=== PATIENT | male | born 1935 | race Caucasian/White ===

== ENCOUNTER → 2017-10-08 | Outpatient (CLI) | payer MEDICARE, OTHER ==
[~2017-10-08] MED LIST: ACETAMINOPHEN-1 EAC1 PO; ADULT LOW DOSE81 MG PO; APAP W/CODEINE1 TA3 PO; ASPIRIN EC81 M1 PO; ASPIRIN325 PO; CARDIZEM CD120 MG PO; CARDIZEM CD240 MG PO; CELEBREX 200 M200 MG PO; CITRUCEL POWD1418 GM; COLACE100 MG PO; COUMADIN 5 MG TA5 M1; COUMADIN 5 MG TA5 M1 PO; DOXYCYCLINE 10100 MG PO; FLEXERIL PO; FOLIC ACID1 MG PO; HYDROCODON-ACE1 EAC7 PO; HYDROCODONE-AP1 EAC6 PO; LANOXIN 0.120.125 M1 PO; LASIX 40 MG TAB40 M2 PO; LOVENOX; LOVENOX SQ; LYRICA 75 MG CA75 MG PO; METAMUCIL283 GM PO; MOM PO; NEXIUM40 MG PO; NITROGLYCERIN0.4 MG SUBLING; OXYIR5 MG PO; PACERONE 200 M200 M1; PACERONE 200 M200 M1 PO; PERCOCET 5-3251 EACH PO; PERCOCET PO; PREDNISONE 5 MG5 M1 PO; PROAIR HFA8.5 GM INH; PROMETHAZINE V473 ML PO; RYTHMOL225 MG PO; TESSALON PERLE100 MG PO; VITAMIN E400 UNIT PO; ZOFRAN ODT4 MG PO
--- NOTE | 2017-10-10 09:33 | PAINCON ---
[facility] [address] [place] [address] PAIN MANAGEMENT CONSULTATION Name: RIK GONSALES Room: [facility] Bill#: [id number] Admission: 10/08/17 Attend Phys: Baldomero Bailey Discharge: Date of : 37 Report #: [id number] THIS REPORT FOR: //name// CC: Corby Woods The patient is an 82-year-old gentleman, prior seen for symptomatic lumbar radiculopathy and symptomatic spinal stenosis. He had 2 epidural injections done in June with excellent improvement of pain, though pain has begun to recur. Pain started this past August with exacerbation of pain in the back, buttock, and leg pain has continued over the past several months, returns to pain clinic today noting pain to a 5 on a VAS. Blood pressure 122/77, pulse 76, respiratory rate 18. Rises from chair using armrest. Diffuse tenderness across the low back, left hip and leg, modestly antalgic gait, positive straight leg raise on the left. We reviewed diagnostic findings noting MRI from 06/17/2017, notes L5-S1 to have amhndzjm-bb-odmbhw disk desiccation with bilateral neural foraminal narrowing, severe left neural foraminal stenosis. ASSESSMENT: Symptomatic lumbar radiculopathy, acute exacerbation of lumbar radicular symptoms. RECOMMENDATION: 1. Repeat epidural injection under fluoroscopy today, midline approach at L5-S1. 2. Continue current medication including Lyrica and hydrocodone from his primary care physician. Follow up as needed, we will not be able to repeat another injection until December. PROCEDURE: Lumbar epidural injection under fluoroscopy. PROCEDURE NOTE: After both written and informed consent to include risk of spinal cord damage, increased pain, weakness and dural puncture, the patient was taken to the fluoroscopy suite, placed in the prone position. After sterile prep and drape, a skin wheal with lidocaine was raised. A 22-gauge epidural Tuohy needle was inserted in the midline at L5-S1 with good loss to resistance. Negative aspiration for cerebrospinal fluid or blood was noted. Then 1 mL of Omnipaque under biplanar fluoroscopy showed good spread within the epidural space. This was followed with 80 mg of triamcinolone plus 1 mL of 1.5% preservative-free Xylocaine, 0.5 mL Xylocaine was [place] [address] PAIN MANAGEMENT CONSULTATION Name: RADAMESEMILYRIK [id number] Admission: 10/08/17 Attend Phys: Baldomero Bailey Discharge: Date of : 37 Report #: [id number] needle; it was removed. The patient was monitored for an appropriate period of time and discharged in good and stable condition. <ELECTRONICALLY SIGNED> By: Landry Woods DO 10/10/17 0933 1322 [id number] Woods DO /roque
== END | disposition home or self-care (01) ==
LOC: M.PC 08-20 10:00
DX: M54.16 Radiculopathy, lumbar region (principal)

== ENCOUNTER 2017-11-24 12:12 | Emergency (ER) | payer MEDICARE, OTHER ==
[~2017-11-24] VITALS: Ht 175.3 cm; Wt 99.8 kg
[~2017-11-24 12:12] MED LIST changes: -ACETAMINOPHEN-1 EAC1 PO; -DOXYCYCLINE 10100 MG PO; -PREDNISONE 5 MG5 M1 PO; -PROAIR HFA8.5 GM INH; -PROMETHAZINE V473 ML PO; -TESSALON PERLE100 MG PO
[2017-11-24] MEDS ORDERED: LASIX 40 MG TAB40 M2 PO (12:36)
[2017-11-24] MEDS ORDERED: PREDNISONE 5 MG5 M1 PO (12:37)
[2017-11-24 13:26] LABS: ABSOLUTE BASOPHILS 0.1 thou/uL (0.0-0.2); ABSOLUTE LYMPHOCYTES 1.2 thou/uL (0.8-5.3); ABSOLUTE MONOCYTES 1.2 thou/uL (0.0-1.2); ABSOLUTE NEUTROPHILS 7.7 thou/uL (1.6-8.1); BASOPHILS 1.1 %; EOSINOPHILS 0.3 %; HEMATOCRIT 46.3 % (42.0-52.0); HEMOGLOBIN 15.6 gm/dL (14.0-18.0); MCH 31.3 pg (26.0-34.0); MCHC 33.7 g/dL (28.0-37.0); MCV 92.8 fL (80.0-100.0); MONOCYTES 11.3 %; MPV 9.6 fl. (7.2-11.1); NUCLEATED RBCS 0 /100WBC; PLATELET COUNT* 142 thou/uL (150-400); POLYS 75.3 %; RBC 4.98 mil/uL (4.50-6.00); RDW-CV 13.5 % (10.5-14.5); WBC 10.2 thou/uL (4.0-11.0)
[2017-11-24 13:40] LABS: ANION GAP 5 mmol/L (7-16); BUN 18 mg/dL (7-18); CALCIUM 8.7 mg/dL (8.5-10.1); CHLORIDE 103 mmol/L (98-107); CO2 31 mmol/L (21-32); GLUCOSE 104 mg/dL (70-99); POTASSIUM 3.7 mmol/L (3.5-5.1); SODIUM 139 mmol/L (136-145)
[2017-11-24 13:48] LABS: ALBUMIN 3.4 g/dL (3.4-5.0); ALKALINE PHOSPHATASE 61 U/L (46-116); SGOT 27 U/L (15-37); SGPT 43 U/L (30-65); TOTAL BILIRUBIN 0.5 mg/dL (<0.1-1.0); TOTAL PROTEIN 7.5 g/dL (6.4-8.2); TROPONIN-I LEVEL <0.06 ng/mL (<0.06)
[2017-11-24] MEDS ORDERED: ACETAMINOPHEN-1 EAC1 PO (14:15)
[2017-11-24] MEDS ORDERED: TESSALON PERLE100 MG PO (14:15)
[2017-11-24] MEDS ORDERED: DOXYCYCLINE 10100 MG PO (14:15)
[2017-11-24] MEDS ORDERED: PROMETHAZINE V473 ML PO (14:15)
[2017-11-24] MEDS ORDERED: PROAIR HFA8.5 GM INH (14:15)
[2017-11-24 14:42] VITALS: BP 146/79
--- NOTE | 2017-11-24 15:01 | EKG ---
[place] [address] ELECTROCARDIOGRAM REPORT Name: TORIBIODAMIENCAROLIN DIAZT Ariane [facility] [id number] Admission: 11/24/17 Attend Phys: Discharge: 11/24/17 Date of : 37 Report #: [id number] THIS REPORT FOR: //name// [facility] ED Test Date: 2017-11-24 Test Time: 13:17:40 Pat Name: RIK GONSALES Department: Room: Gender: M Porter Head: : 1935 Requested By: Valentina Gastelum Order Number: [id number] MD: Riley De Leon Measurements Intervals [place] Rate: 94 P: [place]: QRS: -14 QRSD: 90 T: 19 QT: 315 QTc: 394 Interpretive Statements Atrial fibrillation Compared to ECG 12/05/2015 17:14:29 no change Electronically Signed On 11-24-2017 15:01:10 BIG MACHINE CONSULTANT by Riley De Leon [email or web address] <ELECTRONICALLY SIGNED> By: Riley De Leon MD, [facility] 11/24/17 1501 1317 16 Riley De Leon MD, FACC /EPI
== END 2017-11-24 14:42 | disposition home or self-care (01) ==
LOC: M.ERS 12:12
PROVIDERS: Physician Assistant
DX: J11.1 Influenza due to unidentified influenza virus with other respiratory manifestations (principal); J20.9 Acute bronchitis, unspecified; I48.91 Unspecified atrial fibrillation; Z96.652 Presence of left artificial knee joint; Z96.641 Presence of right artificial hip joint; Z90.49 Acquired absence of other specified parts of digestive tract; Z91.041 Radiographic dye allergy status; Z91.013 Allergy to seafood

== ENCOUNTER → 2017-12-31 | Outpatient (CLI) | payer MEDICARE, OTHER ==
[~2017-12-31] MED LIST changes: +ACETAMINOPHEN-1 EAC1 PO; +DOXYCYCLINE 10100 MG PO; +PREDNISONE 5 MG5 M1 PO; +PROAIR HFA8.5 GM INH; +PROMETHAZINE V473 ML PO; +TESSALON PERLE100 MG PO
--- NOTE | 2018-01-01 06:52 | PAINCON ---
[facility] [address] [place] [address] PAIN MANAGEMENT CONSULTATION Name: DRURIK L [facility] [id number] Admission: 12/31/17 Attend Phys: Baldomero Bailey Discharge: Date of : 37 Report #: [id number] THIS REPORT FOR: //name// CC: Corby Woods HISTORY OF PRESENT ILLNESS: The patient is a pleasant 82-year-old gentleman, prior treated for symptomatic lumbar radiculopathy, who had a series of three epidural injections; two June and one in September. Notes radicular symptoms appear to be fairly nominal, though he does have axial back pain, primarily left side. Pain is exacerbated with standing and rotating. It appears to be at the level of the iliac crest, possibly a little lower. Empirically, it appears that the pain is over the left L3-L4 and L4-L5 facets, may be a component of L5-S1. Lower extremity strength is preserved. Gait is tandem. Flexion and extension do not exacerbate pain. No SI joint tenderness noted. Straight leg raise negative. He rates the subjective pain a 4 on the VAS and 10 with activity. PHYSICAL EXAMINATION: Otherwise shows a 6-zhtj-4-inch, 234-pound gentleman, BMI is 34.7 kilograms per meter squared. Blood pressure 121/67, pulse 81 and respirations are 18. Alert and oriented to person, place and time, judged to be a reasonable historian. ASSESSMENT: Lumbar spondylosis without myelopathy, L3-L4 and L4-L5 distribution. History of lumbar radiculopathy, relatively quiescent. RECOMMENDATIONS: Fluoroscopic-guided facet joint injections on the left L3-L4 and L4-L5 today. Follow up 2 weeks for reevaluation. If symptoms are not significantly ameliorated, may consider L5-S1 (repeat L4-L5?) facet injections. PROCEDURE: Left L3-L4 and L4-L5 facet joint injection under fluoroscopy. DESCRIPTION OF PROCEDURE: After written and informed consent was obtained, the patient was taken to the fluoroscopy suite and placed in prone position. After sterile prep and drape, skin was raised. A 22-gauge stylet needle was placed to contact the inferior aspect of the left L3-L4 and left L4-L5 facet joint. AP and lateral projections showed good needle placement. A 20 mg triamcinolone plus 1 mL of 0.25% preservative-free bupivacaine was injected at each site. Both needles were removed. The area was cleansed, Band-Aid was applied. The patient monitored for an appropriate period of time, [place] [address] PAIN MANAGEMENT CONSULTATION Name: RIK GONSALES [facility] [id number] Admission: 12/31/17 Attend Phys: Baldomero Bailey Discharge: Date of : 37 Report #: [id number] stable condition. Asked to monitor pain score for the next several hours. Follow up in 2 weeks for reevaluation. <ELECTRONICALLY SIGNED> By: Landry Woods DO 01/01/18 0652 1304 1339Landry Woods DO /nt
== END | disposition home or self-care (01) ==
LOC: M.PC 02:44
DX: M47.816 Spondylosis without myelopathy or radiculopathy, lumbar region (principal); G89.29 Other chronic pain; Z91.041 Radiographic dye allergy status; Z79.82 Long term (current) use of aspirin; Z79.891 Long term (current) use of opiate analgesic; Z79.899 Other long term (current) drug therapy; Z98.890 Other specified postprocedural states

== ENCOUNTER → 2018-01-14 | Outpatient (CLI) | payer MEDICARE, OTHER ==
--- NOTE | 2018-01-15 09:37 | PAINCON ---
[facility] [address] [place] [address] PAIN MANAGEMENT CONSULTATION Name: DRURIK L [facility] [id number] Admission: 01/14/18 Attend Phys: Baldomero Bailey Discharge: Date of : 37 Report #: [id number] THIS REPORT FOR: //name// CC: Corby Woods DATE OF SERVICE: 01/14/2018 The patient is a very pleasant 82-year-old gentleman, prior seen for ongoing axial back and radicular pain. Initially seen in the fall. We did 3 epidural injections, 06/25/2017, 07/16/2017, and 10/08/2017. He has afforded really nominal relief. Ultimately, he was seen back in followup 12/31/2017. Pain was primarily axial back. At last visit, I have done left-sided L3-L4 and L4-L5 facet joint injections under fluoroscopy. He returns to Pain Clinic today again noting really only nominal relief at this intervention. The patient is complaining of pain primarily low back, left greater than right side. The patient is complaining primarily of left-sided low back pain, rates it a 9 on a VAS. Notes pain radiates to the top of the left hip, but not down the leg. Pain does interfere with activity. PHYSICAL EXAMINATION: Otherwise, unchanged. An 82-year-old gentleman, BMI is 34.1 kg/m2. Blood pressure 118/70, pulse 83, respirations 16. Rises from chair with difficulty using armrest. Gait is modestly antalgic, but the lower extremity strength is symmetric. Straight leg raise negative. Tender over the low lumbar facets. Pain is exacerbated with rotation and sidebending. Again, however, really no relief with technically successful left L3-L4 and L4-L5 facet joint injections with local anesthetic and steroid. We reviewed the diagnostic finding including MRI from 06/17/2017 noting L3-L4 to have mild bilateral facet arthrosis and a small broad-based disk bulge with bilateral foraminal disk bulging, a superimposed shallow right disk approaching the L4 nerve root. Again, this does not correlate with significant right L4 radicular pain. L5-S1 notes bilateral foraminal disk bulging with moderate facet hypertrophy resulting in moderate to severe right and severe left neural foraminal narrowing. Again, no dramatic L5 radicular symptoms, though his axial back pain may be an aberrant neurogenic claudication equivalent. RECOMMENDATION: At this point, I am loathe to pursue any further interventional therapy with such minimal efficacy with prior interventions. We will suggest the patient follow up with back surgeon to see if there are any definitive therapeutic interventions that are warranted. If not, unfortunately I think we were somewhat [place] [address] PAIN MANAGEMENT CONSULTATION Name: RADAMESJOSE MANUEL DIAZRIK L Room: [facility] TAINA Khan#: [id number] Admission: 01/14/18 Attend Phys: Baldomero Bailey Discharge: Date of : 37 Report #: [id number] Thanks for allowing me to participate in the patient's care. He is given contact information for Dr. Riley Flor in [facility]. <ELECTRONICALLY SIGNED> By: Landry Woods DO 01/15/18 0937 1521 [id number] Woods DO /nt
== END ==
LOC: M.PC 04:37
DX: M54.16 Radiculopathy, lumbar region (principal)

== ENCOUNTER → 2018-02-02 | Outpatient (CLI) | payer MEDICARE, OTHER | LOC: M.MRI 06:43 | DX: M47.816 Spondylosis without myelopathy or radiculopathy, lumbar region (principal); M48.061 Spinal stenosis, lumbar region without neurogenic claudication; M25.552 Pain in left hip ==

== ENCOUNTER → 2018-05-21 | Outpatient (CLI) | payer MEDICARE, OTHER | LOC: M.RAD 09:59 | DX: M19.031 Primary osteoarthritis, right wrist (principal); M19.011 Primary osteoarthritis, right shoulder; M19.041 Primary osteoarthritis, right hand; M19.021 Primary osteoarthritis, right elbow; M25.741 Osteophyte, right hand; M25.721 Osteophyte, right elbow; M25.711 Osteophyte, right shoulder; M79.89 Other specified soft tissue disorders; I48.91 Unspecified atrial fibrillation; W19.XXXA Unspecified fall, initial encounter ==

== ENCOUNTER → 2019-03-19 | Outpatient (CLI) | payer MEDICARE, OTHER | LOC: M.CT 09:28 | DX: M50.823 Other cervical disc disorders at C6-C7 level (principal); I67.82 Cerebral ischemia ==

== ENCOUNTER 2019-05-22 03:16 | Inpatient (IN) | payer MEDICARE, OTHER ==
[2019-05-22] VITALS (7 sets, daily range): BP systolic 98–152; BP diastolic 58–85
[~2019-05-22] VITALS: Ht 175.3 cm; Wt 100.2 kg
[~2019-05-22 03:16] MED LIST changes: +DIGOXIN125 MCG PO; -LANOXIN 0.120.125 M1 PO
[2019-05-22 04:08] LABS: ABSOLUTE BASOPHILS 0.1 thou/uL (0.0-0.2); ABSOLUTE EOSINOPHILS 0.1 thou/uL (0.0-0.7); ABSOLUTE LYMPHOCYTES 2.3 thou/uL (0.8-5.3); ABSOLUTE MONOCYTES 0.8 thou/uL (0.0-1.2); ABSOLUTE NEUTROPHILS 4.4 thou/uL (1.6-8.1); BASOPHILS 0.7 %; EOSINOPHILS 1.4 %; HEMATOCRIT 44.6 % (42.0-52.0); HEMOGLOBIN 14.7 gm/dL (14.0-18.0); LYMPHOCYTES 30.5 %; MCH 30.5 pg (26.0-34.0); MCV 92.5 fL (80.0-100.0); NUCLEATED RBCS 0 /100WBC; PLATELET COUNT* 149 thou/uL (150-400); POLYS 57.4 %; RBC 4.83 mil/uL (4.50-6.00); RDW-CV 13.7 % (10.5-14.5); WBC 7.7 thou/uL (4.0-11.0)
[2019-05-22 04:18] LABS: ANION GAP 6 mmol/L (7-16); BUN 19 mg/dL (7-18); CHLORIDE 106 mmol/L (98-107); CO2 28 mmol/L (21-32); CREATININE 1.1 mg/dL (0.6-1.3); GLUCOSE 140 mg/dL (70-99); POTASSIUM 3.8 mmol/L (3.5-5.1); PROTIME 10.2 Seconds (9.20-11.50); SODIUM 140 mmol/L (136-145)
[2019-05-22 04:21] LABS: ALBUMIN 3.4 g/dL (3.4-5.0); ALKALINE PHOSPHATASE 62 U/L (46-116); LIPASE 93 U/L (73-393); NT-PRO BRAIN NAT PEPTIDE 784 pg/mL (<300); SGOT 16 U/L (15-37); SGPT 26 U/L (30-65); TOTAL BILIRUBIN 0.5 mg/dL (<0.1-1.0); TOTAL PROTEIN 6.5 g/dL (6.4-8.2); TROPONIN-I LEVEL <0.06 ng/mL (<0.06)
[2019-05-22] MEDS ORDERED: ASPIR 8181 MG PO (06:01)
--- NOTE | 2019-05-22 07:32 | NUR ---
RECEIVED REPORT FROM ED RN. PT TRANSFERRED TO ROOM 227. PT A&OX4. VSS. 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 ADMISSION HISTORY & PHYSICAL ASSESMENT COMPLETED AND CHARTED. ORIENTED TO ROOM & CALL LIGHT. PT ON O2 AT 2L NC. PT TRACING AFIB ON TELE. PT UPADLIB TO RESTROOM. PT COMPLAINED OF LEFT UPPER QUADRANT ABDOMINAL PAIN. INSTRUCTED ON NPO ORDERED. CALL LIGHT WITHIN REACH.
--- NOTE | 2019-05-22 12:29 | NUR ---
ASSUMED PT CARE AT 0800, AOX4, UP SBA, O2 SAT 90'S RA. TRACING YOLANDE AFIB ON TELE. PT COMPLAINS OF ABDOMINAL AND BACK PAIN. PT FOR CT ABDOMEN/PELVIS. PT ON CLEAR LIQUID DIET. LAST BM 05/21/19. VSS, AM ASSESSMENT CHARTED. MEDS GIVEN PER MAR, HOURLY ROUNDING, CALL LIGHT WITHIN REACH, WILL CONTINUE TO MONITOR.
--- NOTE | 2019-05-22 13:08 | EKG ---
[place] [address] ELECTROCARDIOGRAM REPORT Name: RIK GONSALES Room: [place] [address] ADM IN .R.#: [id number] Admission: 05/22/19 Attend Phys: Aliza hCapa MD Discharge: Date of : 37 Report #: [id number] THIS REPORT FOR: //name// [facility] ED Test Date: 2019-05-22 Test Time: 03:23:37 Pat Name: RIK GONSALES Department: Room: [facility] Gender: M Form Maker Plaster: ID : [id number] Requested By: Valentina Newman Order Number: [id number] MD: Riley De Leon Measurements Intervals [place] Rate: 68 P: [place]: QRS: -18 QRSD: 96 T: 0 QT: 390 QTc: 415 Interpretive Statements Atrial fibrillation Inferior infarct, old Baseline wander in lead(s) V3 Compared to ECG 11/24/2017 13:17:40 no change Electronically Signed On 05-22-2019 13:07:55 CDT by Riley De Leon [email or web address] <ELECTRONICALLY SIGNED> By: Riley De Leon MD, [facility] 05/22/19 1307 0323 0323 Riley De Leon MD, [facility] /EPI
[2019-05-23 03:30] VITALS: BP 111/59
[2019-05-23 04:20] LABS: HEMATOCRIT 43.1 % (42.0-52.0); HEMOGLOBIN 14.3 gm/dL (14.0-18.0); MCH 30.7 pg (26.0-34.0); MCHC 33.3 g/dL (28.0-37.0); MCV 92.2 fL (80.0-100.0); MPV 9.3 fl. (7.2-11.1); RBC 4.67 mil/uL (4.50-6.00); RDW-CV 13.9 % (10.5-14.5); WBC 6.6 thou/uL (4.0-11.0)
[2019-05-23 04:42] LABS: ALKALINE PHOSPHATASE 43 U/L (46-116); ANION GAP 5 mmol/L (7-16); BUN 14 mg/dL (7-18); CALCIUM 8.1 mg/dL (8.5-10.1); CHLORIDE 107 mmol/L (98-107); CO2 30 mmol/L (21-32); GLUCOSE 125 mg/dL (70-99); POTASSIUM 4.5 mmol/L (3.5-5.1); SGOT 17 U/L (15-37); SGPT 23 U/L (30-65); SODIUM 142 mmol/L (136-145); TOTAL BILIRUBIN 1.1 mg/dL (<0.1-1.0); TOTAL PROTEIN 6.2 g/dL (6.4-8.2); TROPONIN-I LEVEL <0.06 ng/mL (<0.06)
--- NOTE | 2019-05-23 07:55 | NUR ---
ASSUMED CARE OF PT AFTER REPORT AT 1930. PT A&OX4. VSS. PHYSICAL ASSESSMENT COMPLETED AND CHARTED. PT ON RA. PT TRACING AFIB ON TELE. PT UPADLIB TO RESTROOM. PT DENIES ABDOMINAL PAIN OR PRESSURE. PT ABLE TO SLEEP WELL ON BED. CALL LIGHT WITHIN REACH.
[2019-05-23 08:00] VITALS: BP 126/63
[2019-05-23 11:27] VITALS: BP 131/80
[2019-05-23] MEDS ORDERED: SENNA8.6 MG PO (16:05)
[2019-05-23] MEDS ORDERED: SIMETHICON CHEW80 M1 PO (16:12)
[2019-05-23] MEDS ORDERED: LEVAQUIN 500 M500 M2 PO (16:17)
[2019-05-23] MEDS ORDERED: MIRALAX17 GM PO (16:20)
[2019-05-23 16:30] VITALS: BP 131/80
--- NOTE | 2019-05-23 17:30 | NUR ---
PT ATE ALL MEALS THIS SHIFT WITH C/O OF DISCOMFORT. HE HAD TO LARGE BELCHES AND STATED HE FELT MUCH BETTER. ABDOMEN WAS SOFT AND NO C/O OF DISTENTION OR DISCOMFORT. 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 LEFT IN W/C ACCOMPANIED BY AND NURSE.
--- NOTE | 2019-05-23 17:41 | NUR ---
ASSUMED PT CARE AT 0730, PT WAS NOTED TO BE RESTING BED A/OX4. HIS AT HIS BEDSIDE. ASSESSMENT COMPLETED AND DOCUMENTED, VSS, PT STATED HE HAD 2 SMALL BM'S. NO C/O PAIN, WILL CONT HOURLY ROUNDS THIS SHIFT. CALL LIGHT IN REACH.
--- NOTE | 2019-05-24 10:40 | CON ---
[address] [address] CONSULTATION Name: RIK GONSALES Room: [address] IN M.Vanessa.#: [id number] Admission: 05/22/19 Attend Phys: Aliza Chapa MD Discharge: 05/23/19 Date of : 37 Report #: [id number] THIS REPORT FOR: //name// CC: Aliza Lau DO DATE OF SERVICE: 05/22/2019 CARDIOLOGY CONSULTATION HISTORY OF PRESENT ILLNESS: The patient is an 83-year-old white male who I was asked to see in the hospital today after he complained of chest pain. The patient has an extensive past medical history. He has a long history of atrial fibrillation. He apparently was cardioverted twice approximately 10 years ago, but had recurrent atrial fibrillation and decided to aim for rate control rather than repeat cardioversion. The patient has refused anticoagulation in the past. He previously was followed by my partner, Dr. Barron. He apparently had heart catheterization years ago and was found to have no significant coronary artery disease. He actually had a stress test in 2016 here at [place] that showed ejection fraction 65%. No evidence of ischemia or previous infarction. His last echocardiogram in 2016 showed ejection fraction 65%, left ventricular hypertrophy, biatrial enlargement. The patient last saw Dr. Nettles in January. His heart catheterization was in 2010 here at [place] by Dr. Barron and showed no significant coronary artery disease with normal left ventricular function. The patient states he has chronic back pain and does stretching exercises on a daily basis. He notes for the past 3 days, he has noticed some abdominal distention and it was hard to breathe. He notes some heaviness in his chest. He finally came to the hospital last night, was admitted. He denied the pain radiating down his arms. He had no diaphoresis or nausea. He has had no vomiting or diarrhea. He does have a history of diverticular disease. He denies any significant exertional palpitations. He has had some lightheadedness and shortness of breath. He had no fever. PAST MEDICAL HISTORY: Significant for previous cholecystectomy, prostatectomy for prostate cancer. He has had hip surgery, knee surgery. He has no history of hypertension, diabetes, hyperlipidemia. MEDICATIONS: Include aspirin a day, digoxin, diltiazem, Lidoderm patch, Lyrica. ALLERGIES: HE HAS INTOLERANCE TO MECLIZINE. FAMILY HISTORY: He has a sister who suddenly. SOCIAL HISTORY: He is . He and his live in [place], [place]. He is retired from [employer]. He was a nonsmoker[place] [address] CONSULTATION Name: JOSE MANUEL GONSALESREST DELIA Room: [address] M.R.#: [id number] Admission: 05/22/19 Attend Phys: Aliza Chapa MD Discharge: 05/23/19 Date of : 37 Report #: [id number] REVIEW OF SYSTEMS: He has had no history of stroke, asthma, peptic ulcer disease, liver disease, kidney disease. He has had prostate cancer. No chronic skin condition. He has had a kidney stone in the past. PHYSICAL EXAMINATION: GENERAL: Revealed an elderly male, lying in bed, appeared in no acute distress. VITAL SIGNS: Blood pressure 140/70, pulse 60. He is afebrile. HEENT: He was anicteric. Conjunctivae pink. Mucous membranes moist. NECK: Veins do not appear distended. No carotid bruits. Neck supple. CHEST: Clear to auscultation. CARDIOVASCULAR: Irregular rhythm. ABDOMEN: Soft. EXTREMITIES: Had no edema. SKIN: Warm and dry. NEUROLOGIC: Nonfocal. RADIOLOGICAL DATA: His ECG showed atrial fibrillation. There was no ST or T-wave change. His workup in the Emergency Room last night, he had a portable chest x-ray that showed atelectasis, otherwise unremarkable. CT scan of the head that was done in February showed no acute abnormalities, some atrophy. LABORATORY DATA: His lab work last night, sodium 140, creatinine 1.1, glucose 140. His liver enzymes were normal. Troponin 0.06. BNP 784. Previous TSH was 3.5. White blood cell count 7.7, hemoglobin 14.7. IMPRESSION AND RECOMMENDATIONS: 1. Atrial fibrillation. Rate controlled with a digoxin and diltiazem. The patient refuses anticoagulation. 2. Abdominal distention. The patient is scheduled for a CT scan of the abdomen. The patient does have history of diverticular disease. 3. Chest pain. Atypical for angina. Previous normal catheterization and stress test. Recommend no further cardiac evaluation. 4. Restless leg syndrome. 5. Chronic back pain. 6. History of prostate cancer. <ELECTRONICALLY SIGNED> By: Riley De Leon MD, FACC 05/24/19 1040 0955 1314Dtai De Leon MD, FACC /nt
--- NOTE | 2019-05-29 16:06 | CON ---
[address] [address] CONSULTATION Name: RIK GONSALES Room: [address] IN M.R.#: [id number] Admission: 05/22/19 Attend Phys: Aliza Chapa MD Discharge: 05/23/19 Date of : 39 Report #: [id number] THIS REPORT FOR: //name// CC: Aliza Lua DO DATE OF SERVICE: 05/23/2019 REFERRING DOCTOR: Aliza Chapa MD. REASON FOR CONSULTATION: Abdominal bloating. IMPRESSION: 1. Diffuse abdominal pain associated with abdominal distention, early satiety and bowel changes. 2. Abdominal pain and bloating, which has since resolved. 3. Recent change in bowel habits with a tendency towards constipation. RECOMMENDATIONS: 1. The patient appears to be doing much better at this time. I told him that if he did well with dinner that we will proceed with an outpatient colonoscopy to ensure there is nothing going on with his lower GI tract to cause his bowel irregularity. We can arrange for this to be done within the next couple of weeks. He will need a 2-day prep due to his bowel changes. 2. In the interim, we can get him started on some MiraLax 17 grams in 8 ounces of water daily to help keep his bowels moving. 3. We will request records from Dr. Abdullahi Kearns, who did his last colonoscopy within last few years. 4. If he needs to take anything once he gets home because he is not passing lot of stool, I would suggest that he take a 10-ounce bottle of mag citrate followed by MiraLax daily. I have discussed the plans with the patient as well as his and they are agreeable to the same. HISTORY OF PRESENT ILLNESS: The patient is a pleasant 83-year-old white male who came to the emergency room with complaints of just severe abdominal distention and feeling as if he could not breathe. He has been having some issues with his bowels being less erratic, less regular and less stool frequency. Because he has also not been eating, this makes things worse for his bowels. He denies normally any issues with his bowels or bowel frequency, but recently over the last week or two, he has just gotten little bit less sluggish. He has not had much in regards to evacuation. He denies any bleeding at all. He has not had any pain other than the bloating that occurred with the same. He denies any nausea or vomiting. He states he had undergone a colonoscopy within the last few years by Dr. Abdullahi Kearns, which [place] [address] CONSULTATION Name: RADAMESEMILYRIK Room: [address] M.R.#: [id number] Admission: 05/22/19 Attend Phys: Aliza Chapa MD Discharge: 05/23/19 Date of : 39 Report #: [id number] was not felt they need to have another colonoscopy for screening purposes, but I told him that this would be done because he had a change in bowel habits. He is admitted into the hospital and feeling much better now that he has passed gas and some stool. ALLERGIES: TO IV CONTRAST DYE AND SHELLFISH. MEDICATIONS AT HOME: Include aspirin, diltiazem, digoxin, nitroglycerin, pregabalin, hydrocodone and aspirin. PAST MEDICAL AND SURGICAL HISTORY: Remarkable for underlying heart disease with previous hospitalizations in the past for the same. He has a history of atrial fibrillation. He has had hernia repairs, cholecystectomy. He has had radical prostatectomy. He has had kidney stones with stents placed in the past. He has had left total knee replacement, right hip replacement and left knee replacement. SOCIAL HISTORY: The patient is , does not smoke or drink. FAMILY HISTORY: Negative. PHYSICAL EXAMINATION: GENERAL: Pleasant 83-year-old white male, who is awake and alert. CARDIOPULMONARY: Revealed a regular rate and rhythm. LUNGS: Clear. ABDOMEN: Soft, is not distended. No rebound or guarding noted. LABORATORY DATA: Revealed a white count of 6.6, hemoglobin 14.3, platelet count 146,000. His MCV is 92.2 and RDW is 13.9. Sodium 142, potassium 4.5, chloride 107, bicarbonate is 30. His BUN is 14, creatinine 1.0. Total bilirubin is 1.1, alkaline phosphatase is 43, AST 17, ALT 23, albumin is 3.0. CT scan was reviewed personally by me and was unremarkable for postsurgical changes compatible with previous cholecystectomy. He does have a cyst within left lobe of his liver. 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 There is no evidence for any other issues. DISCUSSION: At the present time, the patient has had some problems with abdominal bloating, bowel changes. We will proceed with outpatient colonoscopy and make further recommendations thereafter. <ELECTRONICALLY SIGNED> By: Germain Whaley DO 05/29/19 1606 0910 1024Germain Whaley DO /nt
== END 2019-05-23 17:25 | disposition home or self-care (01) | DRG 372 ==
LOC: M.ERS 03:16 → M.2W 04:44 → M.TBA-ER 04:44 → M.2W 05:35
PROVIDERS: Internal Medicine; Personal Emergency Response Attendant; ADMIT Internal Medicine
DX: A04.9 Bacterial intestinal infection, unspecified (principal); E44.1 Mild protein-calorie malnutrition; I48.91 Unspecified atrial fibrillation; Z96.641 Presence of right artificial hip joint; Z96.652 Presence of left artificial knee joint; R07.2 Precordial pain; R14.0 Abdominal distension (gaseous); G25.81 Restless legs syndrome; G89.29 Other chronic pain; M54.9 Dorsalgia, unspecified; K57.90 Diverticulosis of intestine, part unspecified, without perforation or abscess without bleeding; F41.9 Anxiety disorder, unspecified; Z79.82 Long term (current) use of aspirin; Z90.49 Acquired absence of other specified parts of digestive tract; Z87.442 Personal history of urinary calculi; Z91.041 Radiographic dye allergy status; Z91.013 Allergy to seafood; Z85.46 Personal history of malignant neoplasm of prostate; Z82.49 Family history of ischemic heart disease and other diseases of the circulatory system; Z82.3 Family history of stroke; Z79.899 Other long term (current) drug therapy; Z68.32 Body mass index [BMI] 32.0-32.9, adult

== ENCOUNTER 2020-04-10 11:05 | Emergency (ER) | payer MEDICARE, OTHER ==
[~2020-04-10] VITALS: Ht 172.7 cm; Wt 96.2 kg
[~2020-04-10 11:05] MED LIST changes: +ASPIR 8181 MG PO; +LEVAQUIN 500 M500 M2 PO; +MIRALAX17 GM PO; +SENNA8.6 MG PO; +SIMETHICON CHEW80 M1 PO
[2020-04-10 12:10] LABS: ABSOLUTE LYMPHOCYTES 0.5 thou/uL (0.8-5.3); ABSOLUTE MONOCYTES 0.4 thou/uL (0.0-1.2); ABSOLUTE NEUTROPHILS 1.4 thou/uL (1.6-8.1); BASOPHILS 0.8 %; HEMATOCRIT 46.9 % (42.0-52.0); HEMOGLOBIN 16.2 gm/dL (14.0-18.0); MCH 31.4 pg (26.0-34.0); MCHC 34.6 g/dL (28.0-37.0); MCV 90.9 fL (80.0-100.0); MONOCYTES 17.9 %; MPV 10.3 fl. (7.2-11.1); NUCLEATED RBCS 0 /100WBC; POLYS 59.3 %; RBC 5.16 mil/uL (4.50-6.00); RDW-CV 13.4 % (10.5-14.5); WBC 2.4 thou/uL (4.0-11.0)
[2020-04-10 12:18] LABS: PROTIME 10.7 Seconds (9.20-11.50)
[2020-04-10 12:22] LABS: CREATININE 1.3 mg/dL (0.6-1.3); POTASSIUM 4.1 mmol/L (3.5-5.1)
[2020-04-10 12:28] LABS: ALBUMIN 3.5 g/dL (3.4-5.0); TOTAL BILIRUBIN 0.5 mg/dL (<0.1-1.0); TOTAL PROTEIN 7.2 g/dL (6.4-8.2)
[2020-04-10 12:49] LABS: PLATELET COUNT* 71 thou/uL (150-400)
[2020-04-10 14:20] LABS: URINE BILIRUBIN NEGATIVE (Negative); URINE BLOOD NEGATIVE (Negative); URINE CLARITY CLEAR; URINE COLOR YELLOW; URINE GLUCOSE-RANDOM NEGATIVE (Negative); URINE KETONES NEGATIVE (Negative); URINE LEUKOCYTES-REFLEX NEGATIVE (Negative); URINE NITRITE-REFLEX NEGATIVE (Negative); URINE PROTEIN NEGATIVE (Negative); URINE SPECIFIC GRAVITY >= 1.030 (1.005-1.030)
[2020-04-10] MEDS ORDERED: ZOFRAN ODT4 MG DISSOLVE (14:36)
[2020-04-10] MEDS ORDERED: NORCO 5-325 TA1 EAC2 PO (14:36)
[2020-04-10 15:09] VITALS: BP 122/75
--- NOTE | 2020-04-10 17:12 | EKG ---
[place] [address] ELECTROCARDIOGRAM REPORT Name: RIK GONSALES [id number] Admission: 04/10/20 Attend Phys: Discharge: 04/10/20 Date of : 39 Date of Service: 04/10/20 1121 Report #: [id number] THIS REPORT FOR: //name// [facility] ED Test Date: 2020-04-10 Test Time: 11:21:01 Pat Name: RIK GONSALES Department: Room: Gender: M Technical Staff Assistant: CCD : [id number] Requested By: Alberto Richards Order Number: [id number] MD: Riley De Leon Measurements Intervals [place] Rate: 74 P: [place]: QRS: -19 QRSD: 91 T: 0 QT: 349 QTc: 388 Interpretive Statements Atrial fibrillation Inferior infarct, old Compared to ECG 05/22/2019 03:23:37 No significant changes Electronically Signed On 04-10-2020 17:12:08 CDT by Riley De Leon [email or web address] <ELECTRONICALLY SIGNED> By: Riley De Leon MD, [facility] 04/10/20 1712 1121 1121 Riley De Leon MD, [facility] /EPI
== END 2020-04-10 15:11 | disposition home or self-care (01) ==
LOC: M.ERS 11:05
PROVIDERS: Emergency Medicine Emergency Medical Services; Family Medicine
DX: R10.84 Generalized abdominal pain (principal); I48.91 Unspecified atrial fibrillation; Z20.828 Contact with and (suspected) exposure to other viral communicable diseases; Z90.49 Acquired absence of other specified parts of digestive tract; Z87.442 Personal history of urinary calculi; Z96.652 Presence of left artificial knee joint; Z96.641 Presence of right artificial hip joint; Z91.041 Radiographic dye allergy status; Z91.013 Allergy to seafood; Z88.8 Allergy status to other drugs, medicaments and biological substances

== ENCOUNTER → 2021-09-10 | Outpatient (CLI) | payer MEDICARE, OTHER ==
[~2021-09-10] MED LIST changes: +LIDODERM1 EACH TRANSDERM; +NORCO 5-325 TA1 EAC2 PO; +ZOFRAN ODT4 MG DISSOLVE
--- NOTE | 2021-09-10 14:18 | 2DMMODE ---
[place] [address] 2 D/M-MODE ECHOCARDIOGRAM Name: RIK GONSALES DELIA Room: [facility] UnrulyLinda#: [id number] Admission: 09/10/21 Attend Phys: Alexis Barron, Discharge: Date of : 39 Date of Service: 09/10/21 1417 Report #: [id number] THIS REPORT FOR: cc: Gabriel Elizabeth Adam J DO Blick, David R. MD [facility] ~ APPROVED REPORT Study performed: 09/10/2021 14:04:08 EXAM: Comprehensive 2D, Doppler, and color-flow Echocardiogram Patient Location: Out-Patient BSA: 2.10 HR: 82 bpm BP: 130/80 mmHg Other Information Study Quality: Good Indications Atrial Fibrillation 2D Dimensions IVSd: 10.92 (7-11mm) LVOT Diam: 20.59 (18-24mm) LVDd: 44.25 mm PWd: 13.02 (7-11mm) Ascending Ao: 33.41 (22-36mm) LVDs: 29.36 (25-40mm) Aortic Root: 33.31 mm Volumes Left Atrial Volume (Systole) LA ESV Index: 23.80 mL/m2 Aortic Valve AoV Peak Neel.: 1.05 m/s AO Peak Gr.: 4.37 mmHg LVOT Max P.72 mmHg AO Mean Gr.: 2.29 mmHg LVOT Mean P.78 mmHg LVOT Max V: 0.66 m/s AO V2 VTI: 18.73 cm LVOT Mean V: 0.40 m/s CLAUDIA (VTI): 2.46 cm2 LVOT V1 VTI: 13.82 cm Mitral Valve MV Decel. Time: 188.76 [place] [address] 2 D/M-MODE ECHOCARDIOGRAM Name: RIK GONSALES Room: [facility]#: [id number] Admission: 09/10/21 Attend Phys: Alexis Barron, Discharge: Date of : 39 Date of Service: 09/10/21 1417 Report #: [id number] MV PHT: 54.74 ms MVA (PHT): 4.02 cm2 TDI Medial E' Neel.: 0.11 m/s Lateral E' Neel.: 0.13 m/s Pulmonary Valve PV Peak Neel.: 0.64 m/s PV Peak Gr.: 1.62 mmHg Tricuspid Valve RAP Estimate: 5.00 mmHg TR Peak Gr.: 18.51 mmHg RVSP: 23.51 mmHg PA Pressure: 23.51 mmHg Left Ventricle The left ventricle is normal size. There is normal LV segmental wall motion. Mild concentric left ventricular hypertrophy. Left ventricular systolic function is normal. The left ventricular ejection fraction is within the normal range. LVEF is 55-60%. This study is not technically sufficient to allow evaluation of the LV diastolic function due to atrial fibrillation. Right Ventricle Right ventricle is mildly dilated. The right ventricular systolic function is normal. Atria The left atrium size is normal. Right atrium is mildly dilated. Aortic Valve The Aortic valve is sclerotic. No aortic regurgitation is present. There is no aortic valvular stenosis. Mitral Valve The mitral valve is normal in structure. Mild mitral regurgitation. No evidence of mitral valve stenosis. Tricuspid Valve The tricuspid valve is normal in structure. Mild tricuspid regurgitation. Pulmonic Valve The pulmonary valve is normal in structure. Mild pulmonic [place] [address] 2 D/M-MODE ECHOCARDIOGRAM Name: RADAMESJOSE MANUEL DIAZRIKBHAVANA LIN Room: [facility] TAINA Khan#: [id number] Admission: 09/10/21 Attend Phys: Alexis Barron, Discharge: Date of : 39 Date of Service: 09/10/21 1417 Report #: [id number] Great Vessels The aortic root is normal in size. IVC is normal in size and collapses >50% with inspiration. Pericardium There is no pericardial effusion. <Conclusion> LVEF is 55-60%. Mild concentric left ventricular hypertrophy. Right ventricle is mildly dilated. The Aortic valve is sclerotic. Mild mitral regurgitation. <ELECTRONICALLY SIGNED> By: Riley De Leon MD, FACC 09/10/211416 16 16 Riley De Leon MD, FACC /INF
== END ==
LOC: M.CRD 12:20
PROVIDERS: ATTEND Internal Medicine Cardiovascular Disease
DX: I08.8 Other rheumatic multiple valve diseases (principal); I48.21 Permanent atrial fibrillation